=== PATIENT | female | born 1990 | race Caucasian/White ===

== ENCOUNTER 2018-04-11 15:31 | Observation (INO) | payer OTHER ==
[2018-04-11] MEDS ORDERED: NS 1,000 ML IV ONE (15:50)
[2018-04-11] MEDS ORDERED: DEXAMETHASONE 10 MG/ML VIAL IVP ONE (15:50)
--- NOTE | 2018-04-11 15:52 | EDPHY ---
H & P Time Seen by Provider: 04/11/18 15:42 HPI/ROS: CHIEF COMPLAINT: Sore throat for 2 weeks HISTORY OF PRESENT ILLNESS: Patient developed sore throat for 2 weeks which is much worse over the past 24-48 hours. Now over the past 2 days she developed right-sided neck swelling and difficulty swallowing. She can still breathe normally but has difficulty swallowing. Right-sided neck swelling does not radiate. Not better worse with anything. No dental symptoms. A little bit of a right earache. No fevers or chills. REVIEW OF SYSTEMS: Eye: no change in vision ENT: HPI Cardiac: no chest pain or syncope Pulmonary: no cough or SOB Abdomen: no vomiting, diarrhea, abdominal pain Musculoskeletal: no back pain Skin: no rash Neuro: no headache Constitutional: no fever : no urinary symptoms A comprehensive 10 point review of systems is otherwise negative aside from elements mentioned in the history of present illness. PAST MEDICAL HISTORY: Negative Social history: Nonsmoker, leaving for [place] in 10 days General Appearance: Alert and conversant, cooperative. Eyes: No scleral icterus. ENT, Mouth: No trismus. She has uvular edema and some right peritonsillar pillar swelling but uvula is midline. No gum swelling. Normal tympanic membranes. She does have right-sided neck swelling below the angle of the mandible. Respiratory: Normal respiratory effort, breath sounds equal, lungs are clear to auscultation. No stridor or drooling. Cardiovascular: Regular rate and rhythm. Gastrointestinal: Abdomen is soft and non tender. Neurological: Alert, face symmetric, normal motor and sensory in extremities. Skin: Warm and dry, no rashes. Musculoskeletal: Good range of motion of her neck. Psychiatric: Not agitated. Emergency Department course/MDM: CT of the neck discussed and consented. Dexamethasone 10 mg IV. Strep and mono sent. 1737: CT shows swelling and some hypodensity at the right tonsillar pillar, unclear if phlegmon or abscess. Dr. Cotton at this time. Plan for IV antibiotics and admission for IV fluids and ENT consultation as the patient has difficulty swallowing. Results discussed with the patient. She has reluctance about being admitted because of insurance. IV Unasyn 3 g. Case management to see the patient. Smoking Status: Never smoked Constitutional: Initial Vital Signs Temperature (C) 37.2 C 04/11/18 15:40 Heart Rate 87 04/11/18 15:40 Respiratory Rate 16 04/11/18 15:40 Blood Pressure 101/66 04/11/18 15:40 O2 Sat (%) 98 04/11/18 15:40 O2 Delivery Mode Room Air Allergies/Adverse Reactions: No Known Allergies Allergy (Unverified 04/11/18 15:40) Home Medications: Medication Instructions Recorded Ibuprofen [Motrin (*)] 200 - 400 mg PO TID PRN 04/11/18 Multivitamins [Multivitamin (*)] 1 each PO DAILY 04/11/18 Medical Decision Making - Diagnostics Imaging Results: Imaging Impressions Neck CT 04/11/18 16:13 Impression: 1. Moderate enlargement and thickening associated with the right palatine tonsil with central ill-defined decreased density could represent phlegmon versus early abscess. 2. Mild thickening associated with lingual tonsils at the base the tongue and the left palatine tonsil without possible abscess. 3. Reactive lymph nodes within the neck more on the right side. Findings discussed with Trev Johnston M.D. at 17:34 hour, 04/11/2018. Imaging: Discussed imaging studies w/ call center receptionist Radiologist Differential Diagnosis: Differential considered including but not limited to retropharyngeal abscess, epiglottitis, peritonsillar abscess, strep throat Consult/Admit Bed Type: [facility] 181, [facility] 182 - Data Points Laboratory Results: Laboratory Results 04/11/18 15:54 04/11/18 15:54 04/11/18 04/11/18 04/11/18 16:00 15:54 15:54 WBC RBC Hgb POC Hgb 15.3 gm/dL gm/dL (12.6-16.3) Hct POC Hct 45 % % (38-47) MCV MCH MCHC RDW Plt Count MPV Neut % (Auto) Lymph % (Auto) [place] % (Auto) Eos % (Auto) Baso % (Auto) Nucleat RBC Rel Count Absolute Neuts (auto) Absolute Lymphs (auto) Absolute Monos (auto) Absolute Eos (auto) Absolute Basos (auto) Absolute Nucleated RBC Immature Gran % Immature Gran # POC Sodium 139 mEq/L mEq/L (135-145) Sodium 136 mEq/L mEq/L (135-145) POC Potassium 3.9 mEq/L mEq/L (3.3-5.0) Potassium 4.4 mEq/L mEq/L (3.5-5.2) POC Chloride 103 mEq/L mEq/L (97-110) Chloride 102 mEq/L mEq/L (97-110) Carbon Dioxide 24 mEq/l mEq/l (22-31) POC Total CO2 23 mEq/L mEq/L (22-31) Anion Gap 10 mEq/L mEq/L (6-14) POC BUN 10 mg/dL mg/dL (7-23) BUN 12 mg/dL mg/dL (7-23) Creatinine 0.7 mg/dL mg/dL (0.6-1.0) POC Creatinine 0.7 mg/dL mg/dL (0.6-1.0) Estimated GFR > 60 Glucose 76 mg/dL mg/dL (70-100) POC Glucose 79 mg/dL mg/dL (70-100) Calcium 9.5 mg/dL mg/dL (8.5-10.4) Beta HCG, Qual NEGATIVE Monoscreen NEGATIVE (NEGATIVE) Group A Strep Screen 04/11/18 04/11/18 15:54 15:52 WBC 15.03 10^3/uL H 10^3/uL (3.80-9.50) RBC 4.43 10^6/uL 10^6/uL (4.18-5.33) Hgb 14.2 g/dL g/dL (12.6-16.3) POC Hgb Hct 43.0 % % (38.0-47.0) POC Hct MCV 97.1 fL fL (81.5-99.8) MCH 32.1 pg pg (27.9-34.1) MCHC 33.0 g/dL g/dL (32.4-36.7) RDW 12.2 % % (11.5-15.2) Plt Count 414 10^3/uL H 10^3/uL (150-400) MPV 9.3 fL fL (8.7-11.7) Neut % (Auto) 79.0 % H % (39.3-74.2) Lymph % (Auto) 10.6 % L % (15.0-45.0) [place] % (Auto) 6.9 % % (4.5-13.0) Eos % (Auto) 2.9 % % (0.6-7.6) Baso % (Auto) 0.3 % % (0.3-1.7) Nucleat RBC Rel Count 0.0 % % (0.0-0.2) Absolute Neuts (auto) 11.87 10^3/uL H 10^3/uL (1.70-6.50) Absolute Lymphs (auto) 1.60 10^3/uL 10^3/uL (1.00-3.00) Absolute Monos (auto) 1.04 10^3/uL H 10^3/uL (0.30-0.80) Absolute Eos (auto) 0.43 10^3/uL H 10^3/uL (0.03-0.40) Absolute Basos (auto) 0.04 10^3/uL 10^3/uL (0.02-0.10) Absolute Nucleated RBC 0.00 10^3/uL 10^3/uL (0-0.01) Immature Gran % 0.3 % % (0.0-1.1) Immature Gran # 0.05 10^3/uL 10^3/uL (0.00-0.10) POC Sodium Sodium POC Potassium Potassium POC Chloride Chloride Carbon Dioxide POC Total CO2 Anion Gap POC BUN BUN Creatinine POC Creatinine Estimated GFR Glucose POC Glucose Calcium Beta HCG, Qual Monoscreen Group A Strep Screen NEGATIVE (NEGATIVE) Medications Given: Discontinued Medications Dexamethasone (Decadron Injection) 10 mg IVP EDNOW ONE Stop: 04/11/18 15:51 Last Admin: 04/11/18 15:57 Dose: 10 mg Hydromorphone HCl (Dilaudid) 0.5 mg IVP EDNOW ONE Stop: 04/11/18 16:05 Last Admin: 04/11/18 16:17 Dose: 0.5 mg Sodium Chloride (Ns) 1,000 mls @ 0 mls/hr IV ONCE ONE; Wide Open PRN Reason: Protocol Stop: 04/11/18 15:51 Last Admin: 04/11/18 15:57 Dose: 1,000 mls Ampicillin Sodium/Sulbactam (Sodium 3 gm/ Sodium Chloride) 100 mls @ 200 mls/ hr IV EDNOW ONE PRN Reason: Protocol Stop: 04/11/18 18:07 Last Admin: 04/11/18 18:31 Dose: 100 mls Point of Care Test Results: Chemistry 04/11/18 16:00 POC Sodium 139 mEq/L mEq/L (135-145) POC Potassium 3.9 mEq/L mEq/L (3.3-5.0) POC Chloride 103 mEq/L mEq/L (97-110) POC Total CO2 23 mEq/L mEq/L (22-31) POC BUN 10 mg/dL mg/dL (7-23) POC Creatinine 0.7 mg/dL mg/dL (0.6-1.0) POC Glucose 79 mg/dL mg/dL (70-100) ISTAT H&H 04/11/18 16:00 POC Hgb 15.3 gm/dL gm/dL (12.6-16.3) POC Hct 45 % % (38-47) Departure - Departure Disposition: [facility] Inpatient Acute Clinical Impression: Tonsillitis Condition: Good
[2018-04-11] MEDS ORDERED: HYDROmorphONE/DILAUDID 2 MG/ML INJ IVP ONE (16:04)
[2018-04-11 16:09] LABS: PLATELET COUNT 414 10^3/uL (150-400)
[2018-04-11] MEDS ORDERED: IOPAMIDOL (ISOVUE-300) 100 ML BTL ONE (16:38)
[2018-04-11] MEDS ORDERED: AMPICILLIN/SULBACTAM 3 GM in NS 100 ML IV ONE (17:38)
[2018-04-11] MEDS ORDERED: IBUPROFEN 200 MG TAB PO PRN (20:39)
[2018-04-11] MEDS ORDERED: ONDANSETRON DISINTEGRATING 4 MG TAB PO PRN (20:39)
[2018-04-11] MEDS ORDERED: ONDANSETRON 4 MG/2 ML VIAL IVP PRN (20:39)
[2018-04-11] MEDS ORDERED: HYDROmorphONE/DILAUDID 1 MG/ML INJ IVP PRN (20:39)
--- NOTE | 2018-04-11 20:40 | PDGENHP ---
History and Physical - Chief Complaint throat and ear pain - History of Present Illness 28yo healthy F presents with worsening right sided throat and ear pain. Symptoms started about 2 weeks ago with mild sore throat and right ear pain. She went to urgent care about 3 days after symptoms started and was diagnosed with mild URI. She did not receive antibiotics. She has had a persistent sore throat since then and it has been difficult to eat. She then began to notice swelling on the right side of her neck. She woke up this morning and her throat pain was significantly worse. She had a muffled voice and was having trouble breathing. She denies fevers or chills but has been having headaches. She has not been coughing. In the ED, a CT of her neck shows right sided tonsillitis with possible phlegmon formation. She was given a dose of decadron and unasyn. ENT was consulted. She reports significant improvement in her breathing and ability to speak after receiving the steroids. Case discussed with ED physician Trev Johnston. History Information - Allergies/Home Medication List Allergies/Adverse Reactions: No Known Allergies Allergy (Unverified 04/11/18 15:40) Home Medications: Ibuprofen [Motrin (*)] 200 - 400 mg PO TID PRN 04/11/18 [Last Taken Unknown] Multivitamins [Multivitamin (*)] 1 each PO DAILY 04/11/18 [Last Taken Unknown] I have personally reviewed and updated: family history, medical history, social history, surgical history - Past Medical History no pertinent PMH - Surgical History Reports: no pertinent surgical hx - Family History Positive for: non-pertinent - Social History Smoking Status: Never smoked Alcohol Use: Rarely Drug Use: None Additional social history: Lives with roommate. Review of Systems Review of Systems: ROS: 10pt was reviewed & negative except for what was stated in HPI & below Physical Exam Physical Exam: Temp Pulse Resp BP Pulse Ox 36.8 C 89 16 119/66 100 04/11/18 20:02 04/11/18 20:02 04/11/18 20:02 04/11/18 20:02 04/11/18 20:02 Constitutional: no apparent distress, appears nourished, not in pain Eyes: PERRL, anicteric sclera, EOMI Ears, Nose, Mouth, Throat: moist mucous membranes, other (right neck swelling, difficult to assess posterior oropharynx) Cardiovascular: regular rate and rhythym, no murmur, rub, or gallop, No edema Respiratory: no respiratory distress, no rales or rhonchi, clear to auscultation , other (no stridor) Gastrointestinal: normoactive bowel sounds, soft, non-tender abdomen, no palpable masses Genitourinary: no bladder fullness, no bladder tenderness Skin: warm, normal color, no rashes or abrasions, no fluctuance, no induration, No mottled Musculoskeletal: full muscle strength, no muscle tenderness, normal joint ROM, no joint effusions Neurologic: AAOx3 Psychiatric: interacting appropriately, not anxious, not encephalopathic, thought process linear Lab Data & Imaging Review 04/11/18 15:54 04/11/18 15:54 WBC 15.03 10^3/uL (3.80-9.50) H 04/11/18 15:54 RBC 4.43 10^6/uL (4.18-5.33) 04/11/18 15:54 Hgb 14.2 g/dL (12.6-16.3) 04/11/18 15:54 POC Hgb 15.3 gm/dL (12.6-16.3) 04/11/18 16:00 Hct 43.0 % (38.0-47.0) 04/11/18 15:54 POC Hct 45 % (38-47) 04/11/18 16:00 MCV 97.1 fL (81.5-99.8) 04/11/18 15:54 MCH 32.1 pg (27.9-34.1) 04/11/18 15:54 MCHC 33.0 g/dL (32.4-36.7) 04/11/18 15:54 RDW 12.2 % (11.5-15.2) 04/11/18 15:54 Plt Count 414 10^3/uL (150-400) H 04/11/18 15:54 MPV 9.3 fL (8.7-11.7) 04/11/18 15:54 Neut % (Auto) 79.0 % (39.3-74.2) H 04/11/18 15:54 Lymph % (Auto) 10.6 % (15.0-45.0) L 04/11/18 15:54 [place] % (Auto) 6.9 % (4.5-13.0) 04/11/18 15:54 Eos % (Auto) 2.9 % (0.6-7.6) 04/11/18 15:54 Baso % (Auto) 0.3 % (0.3-1.7) 04/11/18 15:54 Nucleat RBC Rel Count 0.0 % (0.0-0.2) 04/11/18 15:54 Absolute Neuts (auto) 11.87 10^3/uL (1.70-6.50) H 04/11/18 15:54 Absolute Lymphs (auto) 1.60 10^3/uL (1.00-3.00) 04/11/18 15:54 Absolute Monos (auto) 1.04 10^3/uL (0.30-0.80) H 04/11/18 15:54 Absolute Eos (auto) 0.43 10^3/uL (0.03-0.40) H 04/11/18 15:54 Absolute Basos (auto) 0.04 10^3/uL (0.02-0.10) 04/11/18 15:54 Absolute Nucleated RBC 0.00 10^3/uL (0-0.01) 04/11/18 15:54 Immature Gran % 0.3 % (0.0-1.1) 04/11/18 15:54 Immature Gran # 0.05 10^3/uL (0.00-0.10) 04/11/18 15:54 POC Sodium 139 mEq/L (135-145) 04/11/18 16:00 Sodium 136 mEq/L (135-145) 04/11/18 15:54 POC Potassium 3.9 mEq/L (3.3-5.0) 04/11/18 16:00 Potassium 4.4 mEq/L (3.5-5.2) 04/11/18 15:54 POC Chloride 103 mEq/L (97-110) 04/11/18 16:00 Chloride 102 mEq/L (97-110) 04/11/18 15:54 Carbon Dioxide 24 mEq/l (22-31) 04/11/18 15:54 POC Total CO2 23 mEq/L (22-31) 04/11/18 16:00 Anion Gap 10 mEq/L (6-14) 04/11/18 15:54 POC BUN 10 mg/dL (7-23) 04/11/18 16:00 BUN 12 mg/dL (7-23) 04/11/18 15:54 Creatinine 0.7 mg/dL (0.6-1.0) 04/11/18 15:54 POC Creatinine 0.7 mg/dL (0.6-1.0) 04/11/18 16:00 Estimated GFR > 60 04/11/18 15:54 Glucose 76 mg/dL (70-100) 04/11/18 15:54 POC Glucose 79 mg/dL (70-100) 04/11/18 16:00 Calcium 9.5 mg/dL (8.5-10.4) 04/11/18 15:54 Beta HCG, Qual NEGATIVE 04/11/18 15:54 Monoscreen NEGATIVE (NEGATIVE) 04/11/18 15:54 Group A Strep Screen NEGATIVE (NEGATIVE) 04/11/18 15:52 Assessment & Plan Assessment: 28yo healthy F presents with worsening right sided throat and ear pain. Imaging consistent with tonsillitis. Plan: #Acute right sided tonsillitis: Severe sore throat and muffled voice. CT showing possible phlegmon vs early abscess in this area. No epiglottitis. No trismus. Group A strep screen and monospot negative. Currently without evidence of airway compromise. - ENT consulted, will see in AM - Dexamethasone 10mg IV q8h - IV unasyn 3g q6h #Right ear pain: Likely related to above. #Leukocytosis, thrombocytosis: Reactive in setting of above. Not septic. VTE ppx: ambulation Code: full Dispo: Admit under observation
[2018-04-11] MEDS ORDERED: NS 1,000 ML IV SCH (20:45)
[2018-04-11] MEDS: ACETAMINOPHEN 325 MG TAB PO PRN (21:13)
[2018-04-11] MEDS: KETOROLAC 15 MG/1 ML SDV IVP PRN (22:10)
[2018-04-11] MEDS: DEXAMETHASONE 10 MG/ML VIAL IVP SCH (23:39)
[2018-04-11] MEDS: AMPICILLIN/SULBACTAM 3 GM in NS 100 ML IV SCH (23:40)
[2018-04-12] MEDS: KETOROLAC 15 MG/1 ML SDV IVP PRN (04:26)
[2018-04-12] MEDS: AMPICILLIN/SULBACTAM 3 GM in NS 100 ML IV SCH (04:26)
[2018-04-12 05:56] LABS: PLATELET COUNT 399 10^3/uL (150-400)
[2018-04-12] MEDS: DEXAMETHASONE 10 MG/ML VIAL IVP SCH (07:39)
[2018-04-12 07:44] VITALS: BP 108/60
[2018-04-12] MEDS: ACETAMINOPHEN 325 MG TAB PO PRN (09:39)
--- NOTE | 2018-04-12 11:10 | SOAPPROG ---
SOAP Progress Note Assessment/Plan: Assessment: Pt with tonsillitis. CT showed no abscess. Tonsils were 2+on right 1+ on left on exam. Ears were normal on exam. Pt's right ear pain likely referred from right sided sore throat. Gave pt script for Augmentin x10d and dexamethasone 8mg x1d 4mg x 2d. Discussed steroids s/e. Also gave pt our contact card to call and make appointment for f/u. Plan: Pt ok to go home on PO meds. Will see her back in office for f/u next week. 04/12/18 11:06 04/12/18 11:18 Subjective: We were consulted on this pt by the ED. Pt reports that she got a URI 2 weeks ago runny nose, feeling fatigued. Started to have a sore throat mostly on right side shortly after. Then yesterday morning she woke up with extreme sore throat , mostly on right side. Went to urgent care who sent her to ED for eval of [employer]. ED performed CT scan showing phlegmon, no abscess. Today pt states that she is feeling better overall. Mostly complains of right ear pain. Eating and drinking fine. Pain with swallowing. No hearing loss or tinnitus. No ear drainage. Objective: Vital Signs Temp Pulse Resp BP Pulse Ox 36.4 C 90 14 108/60 99 04/12/18 07:42 04/12/18 07:42 04/12/18 07:42 04/12/18 07:42 04/12/18 07:42 Laboratory Results 04/12/18 04:55 04/11/18 04/12/18 04/13/18 05:59 05:59 05:59 Intake Total 1000 Balance 1000 Pt resting comfortably in bed. NAD, afebrile. EOMs intact, no nasal d/c. Tonsils are 2+ on the right 1+ on the left. No uvular deviation. No exudate or erythema. No mouth lesions. Mild cervical LAD. EAMs are patent. TM visualized bilat. TMs were not erythematous, no effusion. - Pending Discharge Pending Discharge Within 24 Hours: Yes Pending Discharge Date: 04/13/18 Pending Discharge Time: 11:00 ICD10 Worksheet Patient Problems: Problems Problem Status Onset Tonsillitis Acute
[2018-04-12 11:52] LABS: GROUP A STREP DNA (THROAT) POSITIVE (NEGATIVE)
--- NOTE | 2018-04-12 16:41 | GDS ---
[f rep st] DISCHARGE SUMMARY DISCHARGE DIAGNOSES: 1. Tonsillitis. 2. Group A streptococcus. CONSULTATIONS: Ear, Nose, and Throat. PHYSICAL EXAM: GENERAL: The patient is alert. VITAL SIGNS: Afebrile at 36.4, pulse 90, respirator y rate 14, blood pressure 108/60, and she is saturating 99% on room air. I have seen and evaluated t he patient on the day of discharge. HOSPITAL COURSE: The patient is a 28-year-old female, who presented to the hospital with complaints of throat pain. She was evaluated and diagnosed with tonsillitis. During this hospitalization, she received a CT of her neck showing no abscess. Ear, Nose, and Throat was consulted during this hospit alization. She was placed on Augmentin, as well as dexamethasone and will be discharged home to [facility] in the outpatient setting with Dr. Rosales in 1 day. There are no pending studies. DISCHARGE MEDICATIONS: Please refer to EMR form. Again, the prescriptions for Augmentin, as well as dexamethasone have been provided by the Ear, Nose and Throat physician. /[id number]/MODL
== END 2018-04-12 12:09 | disposition home or self-care (01) ==
LOC: F3E 19:55
PROVIDERS: ADMIT Internal Medicine; ATTEND Family Medicine
DX: J03.00 Acute streptococcal tonsillitis, unspecified (principal)
CPT/HCPCS: 82435-PO; 82565-PO; 82947-PO; 84132-PO; 84295-PO; 84520-PO; 85014-ER; 96365; G0378; J0295; J1100; J1170; J1885; Q9967